=== PATIENT | female | born 1985 | race Caucasian/White ===

== ENCOUNTER 2016-09-29 13:27 | Inpatient (IN) | payer OTHER ==
[~2016-09-29] VITALS: Ht 177.8 cm; Wt 140.0 kg
[2016-09-29 14:06] LABS: Basophils # (auto) 0.1 uL; Basophils % (auto) 0.8 % (0.0-2.0); Eosinophils # (auto) 0.3 uL; Eosinophils % (auto) 4.2 % (0.0-7.0); Hematocrit 40.6 % (36.0-46.0); Hemoglobin 14.2 g/dL (12.2-16.2); Lymphocytes # (auto) 1.5 uL; Lymphocytes % (auto) 20.9 % (10.0-50.0); Mean Corpuscular Hemoglobin 33.8 pg (28.0-32.0); Mean Corpuscular Volume 96.8 fL (80.0-100.0); Monocytes # (auto) 0.5 uL; Monocytes % (auto) 6.4 % (0.0-12.0); Neutrophils % (auto) 67.7 % (37.0-80.0); Platelet Count (auto) 355 10^3/uL (140-450); Red Cell Distribution Width 13.4 % (11.6-16.0); White Blood Cell 7.4 10^3/uL (4.4-10.8)
[2016-09-29 14:25] LABS: Anion Gap 8 (5-15); Aspartate Aminotransferase 17 U/L (15-37); BUN/Creatinine Ratio 10.7; Blood Urea Nitrogen 9 mg/dL (7-18); Calcium 8.6 mg/dL (8.5-10.1); Carbon Dioxide 27 mmol/L (21-32); Chloride 105 mmol/L (98-107); GFR African American 104 mL/min; GFR Non-African American 86 mL/min; Glucose 91 mg/dL (74-106); Magnesium 2.3 mg/dL (1.6-2.6); Potassium 3.3 mmol/L (3.5-5.1); Sodium 140 mmol/L (136-145)
[2016-09-29 14:30] LABS: Alkaline Phosphatase 101 U/L (45-117); Bilirubin, Total 0.6 mg/dL (0.2-1.0); Total Protein 7.7 g/dL (6.4-8.2)
[2016-09-29] MEDS ORDERED: NITROGLYCERIN 0.4 MG SL TAB SL PRN (15:45)
[2016-09-29 16:06] LABS: INR 1.02 (0.9-1.15); Partial Thromboplastin Time 27.8 sec (22.64-33.71)
[2016-09-29] MEDS ORDERED: ONDANSETRON HCL 4 MG/2 ML VIAL IV PRN (17:45)
[2016-09-29] MEDS: MORPHINE SULF INJ 2 MG/ML SYRINGE 1ML IV PRN (17:53)
[2016-09-29] MEDS ORDERED: HYDROmorphone HCL 2 MG/ML VL IV PRN (18:15)
[2016-09-29] MEDS ORDERED: SODIUM CHLORIDE 0.9% 1,000 ML IV ONE (19:15)
[2016-09-29 21:10] VITALS: BP 127/73
[2016-09-29 21:20] VITALS: BP 127/73
[2016-09-29] MEDS ORDERED: THEO200T26 PO (22:43)
[2016-09-30] MEDS: MORPHINE SULF INJ 2 MG/ML SYRINGE 1ML IV PRN (01:19)
[2016-09-30 05:06] VITALS: BP 92/46
[2016-09-30] MEDS ORDERED: LIDOCAINE 2%HCL (LOCAL ANESTH.) INJ 20ML MDV ONE ×3 (07:11→11:45)
[2016-09-30 08:00] VITALS: BP 94/36
[2016-09-30 09:00] VITALS: BP 80/43
[2016-09-30] MEDS ORDERED: fentaNYL CITRATE 100 MCG/2 ML VL ONE ×2 (10:42→12:15)
[2016-09-30] MEDS ORDERED: MIDAZOLAM HCL 1MG/1ML-2 ML VIAL ONE ×3 (10:42→12:30)
[2016-09-30] MEDS ORDERED: VANCOMYCIN 1GM/250ML D5W 250 ML IV ONE (11:31)
[2016-09-30] MEDS ORDERED: SODIUM CHL 0.9% 50 ML ONE ×2 (11:32→12:21)
[2016-09-30] MEDS ORDERED: AMIODARONE HCL (50 MG/ ML) 3 ML VIAL IV ONE ×2 (11:32→12:20)
[2016-09-30] MEDS ORDERED: VANCOMYCIN HCL 1000 MG VL ONE (11:46)
[2016-09-30] MEDS ORDERED: BACITRACIN INJ 50000 UNIT VIAL ONE (11:46)
[2016-09-30] MEDS ORDERED: HYDROmorphone HCL 2 MG/ML VL ONE (13:19)
[2016-09-30] MEDS: DOXYCYCLINE 100 MG TAB/CAP PO SCH ×2 (15:52→21:52)
[2016-09-30] MEDS: HYDROmorphone HCL 2 MG/ML VL IV PRN ×3 (15:53→21:53)
[2016-09-30 17:00] VITALS: BP 110/62
[2016-09-30] MEDS: HYDROcodone-ACET 5/325MG TAB PO PRN (20:00)
[2016-09-30 21:19] VITALS: BP 102/56
[2016-09-30] MEDS: VANCOMYCIN 1GM/250ML D5W 250 ML IV SCH (21:52)
[2016-09-30] MEDS: DRONEDARONE HCL 400 MG TAB PO SCH (21:52)
[2016-09-30] MEDS ORDERED: MULTAQ PO SCH (22:00)
[2016-10-01] MEDS: HYDROmorphone HCL 2 MG/ML VL IV PRN ×5 (01:07→13:39)
[2016-10-01 05:21] VITALS: BP 115/68
[2016-10-01 08:00] VITALS: BP 106/54
[2016-10-01 08:48] VITALS: BP 106/54
[2016-10-01] MEDS: DOXYCYCLINE 100 MG TAB/CAP PO SCH (09:53)
[2016-10-01] MEDS: VANCOMYCIN 1GM/250ML D5W 250 ML IV SCH (09:53)
[2016-10-01] MEDS: DRONEDARONE HCL 400 MG TAB PO SCH (09:54)
[2016-10-01 13:00] VITALS: BP 109/53
[2016-10-01 16:34] VITALS: BP 118/63
[2016-10-01] MEDS: HYDROcodone-ACET 5/325MG TAB PO PRN (17:10)
[2016-10-01 18:10] VITALS: BP 106/54
== END 2016-10-01 18:45 | disposition home or self-care (01) | DRG 243 ==
LOC: ER 13:27 → TELE 13:28 → TELE-WESTW 21:10
PROVIDERS: ADMIT Specialist; ATTEND Specialist
PROC: 0JH606Z Insertion of Pacemaker, Dual Chamber into Chest Subcutaneous Tissue and Fascia, Open Approach (ICD-10-PCS; principal; 2016-09-30)
PROC: 02H63JZ Insertion of Pacemaker Lead into Right Atrium, Percutaneous Approach (ICD-10-PCS; 2016-09-30)
PROC: 02HK3JZ Insertion of Pacemaker Lead into Right Ventricle, Percutaneous Approach (ICD-10-PCS; 2016-09-30)
PROC: B5171ZZ Fluoroscopy of Left Subclavian Vein using Low Osmolar Contrast (ICD-10-PCS; 2016-09-30)
PROC: 4B02XSZ Measurement of Cardiac Pacemaker, External Approach (ICD-10-PCS; 2016-09-30)
DX: I49.5 Sick sinus syndrome (principal); I44.2 Atrioventricular block, complete; I48.92 Unspecified atrial flutter; E87.6 Hypokalemia; I48.0 Paroxysmal atrial fibrillation; F41.9 Anxiety disorder, unspecified; F32.9 Major depressive disorder, single episode, unspecified; F43.10 Post-traumatic stress disorder, unspecified; F17.210 Nicotine dependence, cigarettes, uncomplicated; Z90.49 Acquired absence of other specified parts of digestive tract; Z98.51 Tubal ligation status; Z83.3 Family history of diabetes mellitus; Z87.440 Personal history of urinary (tract) infections; Z87.828 Personal history of other (healed) physical injury and trauma; Z79.899 Other long term (current) drug therapy
CPT/HCPCS: 33208; 36415; 71010; 80053; 83735; 84484; 84702; 85025; 85610; 85730; 87081; 93005; 93288; 94761; 96361; 96374; 96375; 99152; C1785; G0434; J2250; J2405

== ENCOUNTER 2016-11-04 23:43 | Emergency (ER) | payer SELFPAY ==
[~2016-11-04] VITALS: Ht 177.8 cm; Wt 72.6 kg
[~2016-11-04 23:43] MED LIST: THEO200T26 PO
[2016-11-05] VITALS: BP 93/60
[2016-11-05 00:20] LABS: Basophils # (auto) 0.1 uL; Eosinophils # (auto) 0.7 uL; Eosinophils % (auto) 5.5 % (0.0-7.0); Hematocrit 39.6 % (36.0-46.0); Hemoglobin 13.6 g/dL (12.2-16.2); Lymphocytes # (auto) 2.2 uL; Lymphocytes % (auto) 17.8 % (10.0-50.0); Mean Corpuscular Hemoglobin 32.6 pg (28.0-32.0); Mean Corpuscular Hgb Conc. 34.4 g/dL (32.0-36.0); Mean Corpuscular Volume 94.9 fL (80.0-100.0); Mean Platelet Volume 8.8 fL (7.4-10.4); Monocytes # (auto) 0.8 uL; Monocytes % (auto) 6.4 % (0.0-12.0); Neutrophils # (auto) 8.5 uL; Neutrophils % (auto) 69.3 % (37.0-80.0); Platelet Count (auto) 233 10^3/uL (140-450); Red Cell Distribution Width 12.7 % (11.6-16.0); SUSPECT VIEW TRANSMISSION; White Blood Cell 12.3 10^3/uL (4.4-10.8)
[2016-11-05 00:31] LABS: Albumin 3.7 g/dL (3.4-5.0); Anion Gap 6 (5-15); Aspartate Aminotransferase 23 U/L (15-37); BUN/Creatinine Ratio 13.3; Blood Urea Nitrogen 13 mg/dL (7-18); Calcium 8.7 mg/dL (8.5-10.1); Carbon Dioxide 26 mmol/L (21-32); Chloride 115 mmol/L (98-107); GFR African American 87 mL/min; GFR Non-African American 72 mL/min; Glucose 92 mg/dL (74-106); Magnesium 2.1 mg/dL (1.6-2.6); Potassium 3.8 mmol/L (3.5-5.1); Sodium 147 mmol/L (136-145)
[2016-11-05 00:36] LABS: Alkaline Phosphatase 91 U/L (45-117); Bilirubin, Total 0.3 mg/dL (0.2-1.0); Total Protein 7.1 g/dL (6.4-8.2)
[2016-11-05 00:41] LABS: INR 0.96 (0.9-1.15); Prothrombin Time 10.4 sec (9.37-12.3)
[2016-11-05 00:54] LABS: B-Type Natriuretic Peptide 6.16 pg/mL (0-100); Temperature: 23.5 C (20.0-25.0)
== END 2016-11-05 00:42 | disposition left against medical advice (07) ==
LOC: EDBD 23:43 → ER 23:44
DX: R07.9 Chest pain, unspecified (principal); Z95.0 Presence of cardiac pacemaker; Z53.21 Procedure and treatment not carried out due to patient leaving prior to being seen by health care provider
CPT/HCPCS: 36415; 80053; 83735; 83880; 84484; 85025; 85610; 85730

== ENCOUNTER 2017-08-30 11:32 | Emergency (ER) | payer MEDICAID, OTHER ==
[~2017-08-30] VITALS: Ht 177.8 cm; Wt 86.2 kg
[2017-08-30] MEDS ORDERED: ACETAMINOPHEN 500 MG TAB PO ONE (12:00)
[2017-08-30 12:13] LABS: Urine WBC None Seen /hpf (0 - 5)
[2017-08-30 12:16] LABS: Basophils # (auto) 0.1 uL; Basophils % (auto) 0.7 % (0.0-2.0); Eosinophils # (auto) 0.3 uL; Eosinophils % (auto) 3.3 % (0.0-7.0); Hematocrit 45.3 % (36.0-46.0); Hemoglobin 15.4 g/dL (12.2-16.2); Lymphocytes # (auto) 1.7 uL; Mean Corpuscular Volume 96.8 fL (80.0-100.0); Monocytes # (auto) 0.4 uL; Monocytes % (auto) 5.8 % (0.0-12.0); Neutrophils # (auto) 5.2 uL; Neutrophils % (auto) 68.2 % (37.0-80.0); Platelet Count (auto) 305 10^3/uL (140-450); Red Blood Cells 4.68 10^6/uL (4.0-5.20); Red Cell Distribution Width 13.3 % (11.8-14.3); White Blood Cell 7.6 10^3/uL (4.4-10.8)
[2017-08-30 12:21] LABS: Urine Bacteria NONE SEEN /hpf (None Seen); Urine Blood 2+ /uL (Negative); Urine Specific Gravity 1.013 (1.001-1.035)
[2017-08-30 12:29] LABS: BUN/Creatinine Ratio 15.7; Calcium 9.1 mg/dL (8.5-10.1); Potassium 3.9 mmol/L (3.5-5.1)
[2017-08-30] MEDS ORDERED: KETOROLAC TROMETH 60MG/2ML VIAL IM ONE (12:45)
[2017-08-30 14:09] LABS: Alcohol, Urine < 3.0 mg/dL (0-5); Amphetamine Screen, Urine NEGATIVE (NEGATIVE); Barbiturate Scree,Urine NEGATIVE (NEGATIVE); Benzodiazephine Screen, Urine NEGATIVE (NEGATIVE); Cannabinoid Screen, Urine NEGATIVE (NEGATIVE); Cocaine Screen, Urine NEGATIVE (NEGATIVE); Opiate Scree,Urine NEGATIVE (NEGATIVE); Phencyclidine Screen, Urine NEGATIVE (NEGATIVE)
[2017-08-30 14:15] VITALS: BP 126/80
== END 2017-08-30 14:20 | disposition home or self-care (01) ==
LOC: ER 11:32
DX: N94.6 Dysmenorrhea, unspecified (principal); F17.210 Nicotine dependence, cigarettes, uncomplicated
CPT/HCPCS: 36415; 76856; 80048; 80307; 81001; 84702; 85025; 96372; 99285; J1885; 76830

== ENCOUNTER 2017-09-27 09:09 | Emergency (ER) | payer MEDICAID ==
[~2017-09-27] VITALS: Ht 177.8 cm; Wt 81.6 kg
[2017-09-27 09:22] VITALS: BP 108/64
[2017-09-27 10:07] LABS: Basophils # (auto) 0.1 uL; Basophils % (auto) 1.2 % (0.0-2.0); Eosinophils # (auto) 0.3 uL; Eosinophils % (auto) 4.6 % (0.0-7.0); Hematocrit 43.4 % (36.0-46.0); Hemoglobin 14.6 g/dL (12.2-16.2); Lymphocytes # (auto) 1.1 uL; Lymphocytes % (auto) 15.7 % (10.0-50.0); Mean Corpuscular Hemoglobin 32.7 pg (28.0-32.0); Mean Corpuscular Hgb Conc. 33.6 g/dL (32.0-36.0); Mean Corpuscular Volume 97.4 fL (80.0-100.0); Monocytes # (auto) 0.4 uL; Monocytes % (auto) 6.1 % (0.0-12.0); Neutrophils # (auto) 5.1 uL; Neutrophils % (auto) 72.4 % (37.0-80.0); Nucleated Red Blood Cells % 0.2 %; Platelet Count (auto) 231 10^3/uL (140-450); Red Blood Cells 4.45 10^6/uL (4.0-5.20); Red Cell Distribution Width 13.9 % (11.8-14.3); White Blood Cell 7.1 10^3/uL (4.4-10.8)
[2017-09-27] MEDS ORDERED: MORPHINE SULFATE 4 MG/ML SYR/VIAL IV ONE (10:30)
[2017-09-27 10:32] LABS: Alanine Aminotransferase 25 U/L (13-56); Albumin 3.9 g/dL (3.4-5.0); Alkaline Phosphatase 95 U/L (45-117); Anion Gap 5 (5-15); Aspartate Aminotransferase 23 U/L (15-37); BUN/Creatinine Ratio 16.2; Bilirubin, Total 0.4 mg/dL (0.2-1.0); Blood Urea Nitrogen 11 mg/dL (7-18); Carbon Dioxide 21 mmol/L (21-32); Chloride 116 mmol/L (98-107); GFR African American 132 mL/min; GFR Non-African American 109 mL/min; Glucose 98 mg/dL (74-106); Potassium 3.8 mmol/L (3.5-5.1); Sodium 142 mmol/L (136-145); Total Protein 7.7 g/dL (6.4-8.2)
[2017-09-27] MEDS ORDERED: NITROGLYCERIN 0.4 MG SL TAB SL ONE (10:45)
[2017-09-27] MEDS ORDERED: ASPirin 81 mg TAB PO ONE (10:45)
== END 2017-09-27 12:04 | disposition home or self-care (01) ==
LOC: ER 09:09 → EDBD 09:09 → ER 12:04
DX: F41.9 Anxiety disorder, unspecified (principal); F17.210 Nicotine dependence, cigarettes, uncomplicated; I25.2 Old myocardial infarction; Z95.0 Presence of cardiac pacemaker
CPT/HCPCS: 36415; 71045; 80053; 84484; 85025; 93005; 96374; 99285; J2270; J7030

== ENCOUNTER 2018-04-23 19:03 | Emergency (ER) | payer MEDICAID ==
[~2018-04-23] VITALS: Ht 167.6 cm; Wt 62.1 kg
[2018-04-23 19:26] VITALS: BP 94/51
== END 2018-04-23 21:43 | disposition left against medical advice (07) ==
LOC: EDBD 19:03 → ER 19:10
DX: R53.1 Weakness (principal); Z53.21 Procedure and treatment not carried out due to patient leaving prior to being seen by health care provider